=== PATIENT | female | born 1960 | race Caucasian/White ===

== ENCOUNTER 2019-10-20 05:56 | Observation (INO) ==
--- NOTE | 2019-10-06 09:14 | PAT Medication Instructions ---
Medication Instructions Date of Service October 06, 2019 Home Medications acetaminophen [Tylenol Arthritis Pain] 650 mg PO Q12H PRN cyclobenzaprine 10 mg PO HS duloxetine [Cymbalta] 60 mg PO QPM herbal drugs [Colon Herbal Cleanser] 1 cap PO Q OTHER DAY multivitamin with minerals [Hair,Skin and Nails] 1 tab PO QAM STOP taking 2 weeks before surgery (or as soon as possible if surgery is within 2 weeks) herbal drugs [Colon Herbal Cleanser] 1 cap PO Q OTHER DAY multivitamin with minerals [Hair,Skin and Nails] 1 tab PO QAM Take morning of surgery With a small sip of water, OTHERWISE NOTHING TO EAT OR DRINK AFTER MIDNIGHT: acetaminophen [Tylenol Arthritis Pain] 650 mg PO Q12H PRN (okay to take up to 4 hours prior to surgery if needed) Take evening before surgery acetaminophen [Tylenol Arthritis Pain] 650 mg PO Q12H PRN (if needed) cyclobenzaprine 10 mg PO HS duloxetine [Cymbalta] 60 mg PO QPM Other Notes If you have any questions please call us at [phone] or [phone] or [phone] or [phone]
--- NOTE | 2019-10-07 12:58 | Anesthesiology Consultation ---
Date of Service October 07, 2019 Assessment & Plan (1) Encounter for pre-operative examination: Per PAT assessment on 10/06: Travel screen negative. No known COVID-19 positive contacts. No current COVID-19 related symptoms. Surgeon arranging preop COVID testing. Awaiting results. Chart Review Chart Review: Acceptable Risk for Surgery and Patient seen in Pre Admission Testing Teaching & Discussion Pre-Anesthesia Teaching/Discussion Notes: Instructed NPO after midnight before surgery,except medications with 15 cc of water. Medication instructions provided according to the PAT guidelines. History Surgery Operation Date: 10/20/19 07:45 Proposed Procedures p C4-C7 Anterior Cervical Discectomy and Fusion - Azael Godinez DO Height/Weight Height: 5 ft 5 in Weight: 63 kg Allergies Allergy/AdvReac Type Severity Reaction Status Date / Time acetaminophen [From [place]] Allergy Unknown Verified 10/01/19 08:06 codeine Allergy Unknown Verified 10/01/19 08:06 hydrocodone [From [place]] Allergy Unknown Verified 10/01/19 08:06 Penicillins Allergy Unknown Verified 10/01/19 08:06 Medications Home Medications Medication Instructions Recorded Confirmed Last Taken acetaminophen [Tylenol Arthritis 650 mg PO Q12H PRN 10/01/19 10/01/19 Unknown Pain] cyclobenzaprine 10 mg PO HS 10/01/19 10/01/19 Unknown duloxetine [Cymbalta] 60 mg PO QPM 10/01/19 10/01/19 Unknown herbal drugs [Colon Herbal 1 cap PO Q OTHER DAY 10/01/19 10/01/19 Unknown Cleanser] multivitamin with minerals 1 tab PO QAM 10/01/19 10/01/19 Unknown [Hair,Skin and Nails] Past Medical History Medical History (Updated 10/07/19 @ 16:21 by Lynne Tobin) Anxiety Degenerative disc disease Depression Fibromyalgia GERD (gastroesophageal reflux disease) IBS (irritable bowel syndrome) Interstitial cystitis Mitral valve prolapse Patient states provider told her possible MVP after "listening to heart" 30+ years- no definitive diagnosis/no recent echo/no murmur on PAT exam Osteoarthritis Spondylosis TMJ click Exercise / Class Metabolic Activity II 4-5 Yardwork/Stairs/Walk up hill Past Family History Family History Father Diabetes Prostate cancer Mother Heart valve disease Other No family history of adverse response to anesthesia Past Surgical History Surgical History History of colonoscopy History of D&C x 2 History of esophagogastroduodenoscopy (EGD) History of laparoscopy History of partial hysterectomy History of removal of cyst History of tonsillectomy Past Anesthesia History No Hx of Anesthesia Complications and No Family Hx of Anesthesia Complications History of PONV No Hx of PONV and No Hx of Motion Sickness STOP BANG Total 2 Social History Smoking Status: Never smoker Do You Dip or Chew Tobacco: No Hx Alcohol Use: Yes Alcohol type: wine alcohol intake frequency: a few times a month Hx Substance Use: No substance use type: does not use Review of Systems Patient denies chest pain, shortness of breath, dyspnea on exertion, fever, chills, cough, wheezing, palpitations. Physical Exam Vital Signs VITALS BP 107/75 P 84 TEMP 98.1 SP02 100%Ra RESP 16 PHYSICAL Full neck and c-spine range of motion. Full TMJ range of motion. TMD __ finger breaths Mallampati Score ___ Dentition: missing molar Lungs: clear throughout to auscultation Cardiac: regular rate and rhythm, no murmurs noted Spine: normal Carotid arteries: negative bruit Extremities: no edema Testing Laboratory Results 10/07/19 13:12 10/07/19 13:12 PT 10.4 Seconds (9.0-12.0) 10/07/19 13:12 INR 1.0 (0.9-1.1) 10/07/19 13:12 APTT 24.5 Seconds (21.0-31.0) 10/07/19 13:12 Urine Color Yellow 10/07/19 13:12 Urine Appearance Clear (Clear) 10/07/19 13:12 Urine pH 5.0 (4.5-7.5) 10/07/19 13:12 Ur Specific [place] 1.011 (1.000-1.030) 10/07/19 13:12 Urine Protein Negative (Negative) 10/07/19 13:12 Urine Glucose (UA) Negative (Negative) 10/07/19 13:12 Urine Ketones Negative (Negative) 10/07/19 13:12 Urine Nitrite Negative (Negative) 10/07/19 13:12 Ur Leukocyte Esterase Negative (Negative) 10/07/19 13:12 Blood Type B Positive 10/07/19 13:12 Antibody Screen NEGATIVE 10/07/19 13:12 Electrocardiogram Date: 03/19/19 SR at 74bpm. Chest X-Ray Date: 10/07/19 Findings: + NAD
[2019-10-07 14:08] LABS: Basophils # (auto) 0.05 K/uL (0-0.2); Basophils % (auto) 0.8 %; Eosinophils % (auto) 3.2 %; Hematocrit (blood only) 42.1 % (37-47); Hemoglobin 13.3 g/dL (12.0-16.0); Lymphocytes # (auto) 2.78 K/uL (1.2-3.4); Lymphocytes % (auto) 44.3 %; Mean Corpuscular Hgb Conc 31.6 g/dL (32-36); Mean Corpuscular Volume 91.7 fL (80-100); Mean Platelet Volume 9.3 fL (7.4-10.4); Monocytes # (auto) 0.29 K/uL (0.11-0.59); Monocytes % (auto) 4.6 %; Neutrophils # (auto) 2.95 K/uL (1.4-6.5); Neutrophils % (auto) 47.1 %; Platelet Count 287 K/uL (130-400); RDW Coefficient of Variation 14.8 % (11.5-14.5); RDW Standard Deviation 50.2 fL (36.4-46.3); Red Blood Count 4.59 M/uL (4.2-5.4); White Blood Count 6.27 K/uL (4.8-10.8)
--- NOTE | 2019-10-07 14:12 | XRay Report ---
XR chest Pre-admission PA/Lat CLINICAL HISTORY: pat preoperative COMPARISON STUDY: No previous studies for comparison. FINDINGS: The bones soft tissues and hemidiaphragms are normal. The cardiomediastinal silhouette is n ormal. The lungs are clear. The pulmonary vasculature is normal. IMPRESSION: Negative chest. ACT 112: Negative or not required by law. The above report was generated using voice recognition software. It may contain grammatical, syntax or spelling errors. Electronically signed by: Jones Calderon M.D. 10/07/2019 2:11 PM
[2019-10-07 14:17] LABS: BUN Creatinine Ratio 21.8 (10-20); Calcium 9.2 mg/dl (8.5-10.1); Creatinine Clr Calc Pharmacy 70.7 ml/min; Est GFR (African American) 97.1; Est GFR (Non-African American) 83.8; Potassium 4.6 mmol/L (3.5-5.1)
[2019-10-07 14:19] LABS: Partial Thromboplastin Ratio 0.9; Partial Thromboplastin Time 24.5 Seconds (21.0-31.0); Prothrombin Time 10.4 Seconds (9.0-12.0)
[2019-10-07 15:18] LABS: Appearance Urine Clear (Clear); Bilirubin Urine Negative (Negative); Blood Urine Negative (Negative); Color Urine Yellow; Glucose Urine UA Negative (Negative); Ketones Urine Negative (Negative); Leukocyte Esterase Urine Negative (Negative); Nitrite Urine Negative (Negative); Protein Urine Negative (Negative); Specific Gravity Urine 1.011 (1.000-1.030); Urobilinogen Urine Negative (Negative)
[2019-10-20] MEDS ORDERED: GABAPENTIN 600 MG DOSE PO SCH (06:00)
[2019-10-20] MEDS ORDERED: CLINDAMYCIN 600 MG/54 ML BAG IV SCH (06:00)
[2019-10-20] MEDS ORDERED: LR 15ML/HR IV SCH (06:00)
[2019-10-20] MEDS ORDERED: PROPOFOL IV EMULSION 10 MG/ML 20 ML VIAL IV ONE (07:02)
[2019-10-20] MEDS ORDERED: GLYCOPYRROLATE 0.2 MG/ML VIAL ONE (07:02)
[2019-10-20] MEDS ORDERED: LIDOCAINE HCL 2% 2 ML VIAL/AMP(20MG/ML) INFIL ONE (07:02)
[2019-10-20] MEDS ORDERED: DEXAMETHASONE SOD INJ 4 MG/ML VIAL ONE (07:02)
[2019-10-20] MEDS ORDERED: MIDAZOLAM HCL 1 MG/ML 2ML VIAL ONE (07:02)
[2019-10-20] MEDS ORDERED: ONDANSETRON INJ 2 MG/ML 2 ML VIAL ONE (07:02)
[2019-10-20] MEDS ORDERED: NEOSTIGMINE METHYLSULFATE 1 MG/ML 10ML VIAL ONE (07:02)
[2019-10-20] MEDS ORDERED: fentaNYL citrate 100 MCG/2 ML VIAL ONE (07:02)
[2019-10-20] MEDS ORDERED: BACITRACIN INJ 50,000 UNIT VIAL ONE (07:04)
[2019-10-20] MEDS ORDERED: ONDANSETRON INJ 2 MG/ML 2 ML VIAL IV PRN ×2 (07:12→12:18)
[2019-10-20] MEDS ORDERED: fentaNYL citrate 100 MCG/2 ML VIAL IV PRN (07:12)
[2019-10-20] MEDS ORDERED: ePHEDrine sulfate 50 MG/ML AMP IV PRN (07:12)
[2019-10-20] MEDS ORDERED: ATROPINE SULFATE 0.1 MG/ML 10ML SYR IV PRN (07:12)
[2019-10-20] MEDS ORDERED: SUGAMMADEX SODIUM 200 MG/2 ML VIAL IV ONE (07:20)
--- NOTE | 2019-10-20 07:40 | History & Physical Bridge Note ---
Date of Service October 20, 2019 History & Physical Bridge Note I have examined the patient, reviewed the History & Physical and in the interval since the performance of the History & Physical I have noted the following changes of clinical significance: no changes noted
--- NOTE | 2019-10-20 07:41 | History & Physical Report ---
Date of Service October 20, 2019 Assessment & Plan (1) Cervical stenosis of spinal canal: C4-C7 anterior cervical discectomy and fusion Present on Admission?: Yes History of Present Illness Chief Complaint: Neck and arm pain Primary Care Provider: Juan Blood DO This is a 59-year-old female who presents with chronic persistent neck and arm pain. After failing course of nonoperative care is here for surgical invention. Allergies Allergy/AdvReac Type Severity Reaction Status Date / Time acetaminophen [From [place]] Allergy Unknown Verified 10/20/19 06:33 codeine Allergy Unknown Verified 10/20/19 06:33 hydrocodone [From [place]] Allergy Unknown Verified 10/20/19 06:33 Penicillins Allergy Unknown Verified 10/20/19 06:33 Home Medications Home Medications Medication Instructions Recorded Confirmed Type acetaminophen [Tylenol Arthritis 650 mg PO Q12H PRN 10/01/19 10/20/19 History Pain] cyclobenzaprine 10 mg PO HS 10/01/19 10/20/19 History duloxetine [Cymbalta] 60 mg PO QPM 10/01/19 10/20/19 History herbal drugs [Colon Herbal 1 cap PO Q OTHER DAY 10/01/19 10/20/19 History Cleanser] multivitamin with minerals 1 tab PO QAM 10/01/19 10/20/19 History [Hair,Skin and Nails] Past Med/Surg History Family History Father Diabetes Prostate cancer Mother Heart valve disease Other No family history of adverse response to anesthesia Social History Smoking Status: Never smoker Second Hand Exposure: No; Do You Dip or Chew Tobacco: No; Hx Alcohol Use: Yes Alcohol type: wine Hx Substance Use: No Preferred Language: Bel[place]ian Communication Ability: Effective [employer] Required: No Beliefs That Will Affect Care: None Current Living Situation: Spouse Feels Safe at Home: Yes Safety Concerns: Feels Safe At This Time Physical Exam Physical Exam: Patient is alert and oriented neurologically intact. Heart regular rate and rhythm. Lungs clear to auscultation. Results & Data Vital Signs (Past 12 Hours) Vital Signs Temp Pulse Resp BP Pulse Ox 10/20/19 06:39 36.6 C 84 20 118/74 100
[2019-10-20] MEDS ORDERED: HYDROmorphone INJ 2 MG/ML SYR/VIAL ONE (08:13)
--- NOTE | 2019-10-20 09:43 | Operative Report ---
Post Operative Report Pre & Post Diagnosis Operation Date: 10/20/19 07:45 Pre-Op Diagnosis: Cervical spinal stenosis with radiculopathy Post-Op Diagnosis: Same I identified the patient and participated in the time-out.: Yes Procedure Operation Date: 10/20/19 07:45 Actual Procedures #1 anterior cervical discectomy and fusion C4-5, C5-6 and C6-7. #2 anterior cervical arthrodesis C4-5, C5-6 and C6-7. #3 placement of Spira cage filled with DBM 6 mm in height at C4-5, 5 mm in height at C5-6 and 7 mm at C6-7. #4 application of 5 complete screws from C4-C7. Surgeon Azael Godinez, Biology Intern Rebekah Dunham Estimated Blood Loss 10 Findings Consistent with Post-Op Diagnosis Specimens None Indications This is a 51-year-old female presents above-mentioned diagnosis after failing extensive course of nonoperative care is here for the above-mentioned procedure. Description of Procedure Patient was met with identified informed consent obtained. Patient was then taken to the operative suite underwent intubation placed in supine position David table head Rivera head golf coach. Operative prominences well-padded eyes inspected to ensure no external pressure placed upon. This point anterior cervical spine was prepped and draped in a sterile fashion. With the assistance of fluoroscopy identified the C5 vertebral body and a transverse incision was placed along the right anterior aspect of the cervical spine overlying this region. Sharp dissection with assistance of bipolar electrocautery was performed down to and exposing anterior cervical spine from C4-C7. Self- retaining retractors placed. I verified my position with fluoroscopy. Then performed a complete discectomy of C4-5 out to the uncovertebral joints bilaterally. [place] distracting pins utilized. I removed all posterior annular fibers and longitudinal ligament and perform bilateral foraminotomies. En dplates were then burred to subcortical bleeding bone and a 6 mm Spira cage filled with DBM tapped in position. Then proceeded to see 5 C6. Again complete discectomy performed out to the uncovertebral joints bilaterally. [place] distracting pins again utilized. Removed all posterior annular fibers longitudinal ligament bilateral foraminotomies performed. A 5 mm Spira cage was then tapped in position. Lastly presented to C6-7. Again complete discectomy performed [place] distracting pins were lysed. Removed all posterior annular fibers longitudinal ligament bilateral foraminotomies performed and a 7 mm Spira cage filled with DBM tapped in position. Distracting apparatus was removed all anterior osteophytes burred to a smooth cortical surface and a bower plate and screws applied with the assistance of fluoroscopy. Incision was then copiously irrigated and inspected to ensure no damage to surrounding structures remaining bleeding. 10 round HO drain inserted. Incision was then closed with 2 Vicryl in the fascia and 4 Monocryl for final skin closure. Steri-Strip sterile dressings placed. Patient waken taken PACU stable disc. Please note spinal cord monitoring was utilized that the procedure no changes noted. Lastly Rebekah Dunham was present throughout the entire procedure involved the patient positioning complex portions of the surgery and final skin closure. I attest to the content of the Intraoperative Record and any orders documented therein. Any exceptions are noted below.
--- NOTE | 2019-10-20 10:05 | Fluoroscopy Report ---
FL cervical 2-3V CLINICAL HISTORY: ACDF C4-7 COMPARISON STUDY: FLUOROSCOPY TIME: 8 seconds NUMBER OF FLUOROSCOPIC IMAGES: 2 FINDINGS: Image intensifier support for an anterior cervical fusion from C4 through C7 IMPRESSION: Image intensifier support for an anterior cervical fusion from C4 through C7. ACT 112: Negative or not required by law. The above report was generated using voice recognition software. It may contain grammatical, syntax or spelling errors. Electronically signed by: Jones Calderon M.D. 10/20/2019 10:04 AM
[2019-10-20] MEDS ORDERED: ALBUTEROL 0.083% NEBU SOLN 3 ML VIAL ONE (10:14)
[2019-10-20] MEDS ORDERED: NALOXONE HCL 0.4 MG/1 ML VIAL/CARP ONE (10:33)
[2019-10-20] MEDS ORDERED: SOD PHOSPHATE/SOD BIPHOSPHATE ENEMA 132 ML BTL PR PRN (12:18)
[2019-10-20] MEDS ORDERED: RACEPINEPHRINE 2.25% NEBU SOLN 0.5 ML VIAL INH PRN (12:18)
[2019-10-20] MEDS ORDERED: NALOXONE HCL 0.4 MG/1 ML VIAL/CARP IV PRN (12:18)
[2019-10-20] MEDS ORDERED: ALUMINUM/MAGNESIUM SUSP 30 ML UDC PO PRN (12:18)
[2019-10-20] MEDS ORDERED: ACETAMINOPHEN 500 MG TAB PO PRN (12:18)
[2019-10-20] MEDS ORDERED: METOCLOPRAMIDE HCL INJ 5 MG/ML 2 ML VIAL IV PRN (12:18)
[2019-10-20] MEDS ORDERED: MAGNESIUM HYDROXIDE SUSP 30 ML UDC PO PRN (12:18)
[2019-10-20] MEDS ORDERED: LORazepam 0.5 MG TAB PO PRN (12:18)
[2019-10-20] MEDS ORDERED: DO NOT ADMINISTER FLU VACCINE PRN (12:18)
[2019-10-20] MEDS ORDERED: DO NOT ADMINISTER PNEUMOCOCCAL VACCINE PRN (12:18)
[2019-10-20] MEDS ORDERED: LORazepam 0.5 MG/1 ML VIAL IV PRN (12:18)
[2019-10-20] MEDS ORDERED: FAMOTIDINE 20 MG TAB PO PRN (12:18)
[2019-10-20] MEDS ORDERED: OXYCODONE HCL IR 5 MG TAB (IMMEDIATE RELEASE) PO PRN (12:18)
[2019-10-20] MEDS ORDERED: DEXAMETHASONE SOD PHOSPHATE 8 MG in SYRINGE 0 ML IV PRN (12:18)
[2019-10-20] MEDS ORDERED: ONDANSETRON 4 MG OD TAB PO PRN (12:18)
[2019-10-20] MEDS ORDERED: PROMETHAZINE HCL 12.5 MG in SODIUM CHLORIDE 0.9% 50 ML IV PRN (12:18)
[2019-10-20] MEDS ORDERED: ACETAMINOPHEN 1,000 MG/100 ML VIAL IV PRN (12:18)
[2019-10-20] MEDS ORDERED: HYDROmorphone INJ 1 MG/ML SYRINGE IV PRN (12:18)
[2019-10-20] MEDS: LACTATED RINGER'S 1,000 ML IV SCH ×2 (12:37→23:42)
[2019-10-20] MEDS: HYDROmorphone INJ 0.5 MG/0.5 ML SYR IV PRN ×3 (12:41→19:58)
--- NOTE | 2019-10-20 14:00 | Anesthesiology Progress Note ---
Date of Service October 20, 2019 Anesthesia Post Procedure Vital Signs Vital Signs: Temp Pulse Pulse Resp BP BP Pulse Ox 10/20/19 13:15 37.1 C 102 H 12 110/70 94 10/20/19 12:45 36.9 C 105 H 12 109/70 95 10/20/19 12:32 107 H 16 95 10/20/19 12:24 10/20/19 12:15 36.5 C 110 H 14 139/80 95 10/20/19 11:45 114 H 16 133/72 95 10/20/19 11:35 110 H 16 132/85 95 10/20/19 11:25 107 H 14 136/75 98 10/20/19 11:15 36.3 C L 106 H 14 147/73 H 97 10/20/19 11:05 102 H 12 131/80 98 10/20/19 10:55 104 H 14 135/76 98 10/20/19 10:45 108 H 12 143/76 H 97 10/20/19 10:35 103 H 12 123/65 97 10/20/19 10:25 92 H 14 126/59 L 97 10/20/19 10:15 86 10 L 110/57 L 84 L 10/20/19 10:06 36.3 C L 73 15 121/65 100 10/20/19 06:39 36.6 C 84 20 118/74 100 Pulse Ox 10/20/19 13:15 10/20/19 12:45 10/20/19 12:32 10/20/19 12:24 97 10/20/19 12:15 10/20/19 11:45 10/20/19 11:35 10/20/19 11:25 10/20/19 11:15 10/20/19 11:05 10/20/19 10:55 10/20/19 10:45 10/20/19 10:35 10/20/19 10:25 10/20/19 10:15 10/20/19 10:06 10/20/19 06:39 Pain Intensity Bilateral Other: Pain Intensity: 0 Anterior Neck: Pain Intensity: 6 Transfer of Care Handoff Completed per policy Notes Mental Status: alert / awake / arousable and participated in evaluation Patient Amnestic to Procedure: Yes Nausea / Vomiting: adequately controlled Pain: adequately controlled Airway Patency, RR, SpO2: stable & adequate BP & HR: stable & adequate Hydration State: stable & adequate Anesthetic Complications: see Notes below and Pt Satisfied with anesthetic care Notes: Called urgently by PACU nursing staff as patient was desaturating. Upon arrival, PACU nurses were providing bag mask ventilation with supplemental oxygen. Patient was hypoxic and noted high pitched b/l respirations. SpO2 was slowly increasing with bag mask ventilation but decided to administer aluberol via face mask. Respiratory therapy had been called and they provided a duoneb via the bag mask/ambu. Breath sounds much improved and SpO2 in the 90's. Patient still minimally responsive and with eventual shallow and slow respirations. Patient had received sugammadex in the OR for reversal so residual paralytic low on the differential. I felt at this time that her bronchospasm had been adequately treated and therefore I decided to give 40mcg IV narcan x1 dose for slight reveral of her opioids given in the operating room. Within one to two minutes, patient was more alert with better respiratory rate (over 10) and nice chest rise and fall, indicating more adequate tidal volumes. She was following commands and moving extremities x4. Rest of patient's recovery in the PACU was uneventful and she eventually met PACU discharge criteria and was taken to the floor in stable condition.
[2019-10-20] MEDS: CLINDAMYCIN 600 MG in DEXTROSE 5% 50 ML IV SCH ×2 (16:37→23:43)
[2019-10-20] MEDS ORDERED: DULOXETINE HCL 60 MG CAP PO SCH (21:00)
[2019-10-20] MEDS ORDERED: DOCUSATE SODIUM/SENNA 50/8.6MG TAB PO SCH (21:00)
[2019-10-21 05:04] LABS: Basophils # (auto) 0.01 K/uL (0-0.2); Basophils % (auto) 0.1 %; Hematocrit (blood only) 35.6 % (37-47); Hemoglobin 11.5 g/dL (12.0-16.0); Immature Granulocytes # (auto) 0.02 K/uL (0.00-0.02); Immature Granulocytes % (auto) 0.2 %; Lymphocytes # (auto) 0.96 K/uL (1.2-3.4); Mean Corpuscular Hemoglobin 29.9 pg (25-34); Mean Corpuscular Hgb Conc 32.3 g/dL (32-36); Mean Corpuscular Volume 92.5 fL (80-100); Monocytes # (auto) 0.85 K/uL (0.11-0.59); Monocytes % (auto) 7.1 %; Neutrophils # (auto) 10.12 K/uL (1.4-6.5); Neutrophils % (auto) 84.6 %; Platelet Count 228 K/uL (130-400); RDW Coefficient of Variation 15.1 % (11.5-14.5); RDW Standard Deviation 51.4 fL (36.4-46.3); Red Blood Count 3.85 M/uL (4.2-5.4); White Blood Count 11.96 K/uL (4.8-10.8)
[2019-10-21 05:34] LABS: BUN Creatinine Ratio 15.6 (10-20); Calcium 7.8 mg/dl (8.5-10.1); Creatinine Clr Calc Pharmacy 83.6 ml/min; Est GFR (African American) 112.9; Est GFR (Non-African American) 97.4; Potassium 4.4 mmol/L (3.5-5.1)
[2019-10-21] MEDS: TRAMADOL HCL 50 MG TABLET PO PRN ×2 (05:44→12:21)
--- NOTE | 2019-10-21 08:20 | Discharge Summary ---
Date of Service October 21, 2019 Admission HPI Per Admitting Provider This is a 59-year-old female who presents with chronic persistent neck and arm pain. After failing course of nonoperative care is here for surgical invention. Principal Diagnosis Cervical radiculopathy Discharge Data Allergies Allergy/AdvReac Type Severity Reaction Status Date / Time acetaminophen [From [place]] Allergy Unknown Verified 10/20/19 06:33 codeine Allergy Unknown Verified 10/20/19 06:33 hydrocodone [From [place]] Allergy Unknown Verified 10/20/19 06:33 Penicillins Allergy Unknown Verified 10/20/19 06:33 Procedures Performed Operation Date: 10/20/19 07:45 Actual Procedures p C4-C7 Anterior Cervical Discectomy and Fusion, Spinal Cord Monitoring(Not Applicable) - Azael Godinez DO Ordered Studies 10/20/19 07:45 FL cervical 2-3V Routine FL fluoroscopy <1hr Routine Hospital Course (1) Cervical stenosis of spinal canal: Patient underwent anterior cervical discectomy fusion tolerated so was taken to orthopedic for postoperative. Postop day 1 she is swallowing well arm symptoms are improved ambulating halls. Patient demonstrates excellent strength testing. Subsequently discharged home. Discharge orders instructions from the chart for further review. Total Time Total Time Spent Total Time Spent (In Minutes): 20 minutes Discharge Plan Discharge Items Patient Disposition: Home - Self-Care Reason For Visit: Spinal Stenosis, Cervical Region Discharge Diagnosis: Cervical spinal stenosis with radiculopathy Activity: As commented below Non-emergency contact: Primary Care Provider Call non-emergency contact if: you have any medication questions Follow-up/Referrals: Juan Blood DO [Primary Care Provider] - Diet: Regular Addtl Attending Provider Instructions: ACTIVITY RECOMMENDATIONS: SELF CARE INSTRUCTIONS AFTER CERVICAL FUSIONS 1. No smoking. Smoking drastically decreases the chance of a solid fusion. 2. No bending, lifting more than 5 pounds, or twisting (roll like a log when turning in bed). 3. You may shower 3 days after surgery. Thoroughly dry wound. Do not soak in the tub. 4. Cervical collar: Must be worn at all times including sleeping. You may remove the brace only to bath, eat and if you are sitting in a recliner. 5. Please walk as much as you can for exercise. Gradually increase the distance that you walk as your endurance increases. SPECIAL CARE INSTRUCTIONS: VERY IMPORTANT TO READ AND REVIEW A. Do not take any anti-inflammatory medications (i.e. Indocin, Advil, Aspirin, Naprosyn, Aleve, Motrin, etc.) as these may inhibit the chance of a solid fusion. Tylenol is okay to take. B. Your surgical incision has been closed with a cosmetic suture under the skin that will dissolve in about 6 weeks. In 14 days, you can use a pair of clean scissors and cut the suture that is left outside of the skin at the ends of your incision. C. Complications are uncommon, but please contact us if you have any signs or symptoms of: 1. wound infection (fever higher than 102.5 degrees F, redness, separation of wound, drainage, or increasing pain from the incision) 2. blood clots in legs (pain, swelling, redness and warmth in legs) 3. urinary tract infection (fever higher than 102.5 degrees, burning upon urination or increased frequency of urination) 4. nerve problems (inability to walk on your toes or heels, numbness, loss of bowel or bladder control) 5. any other symptoms that concern you. D. Please call the office at if you have any concerns or questions about your operation or recovery. MANAGING PAIN AFTER SPINAL SURGERY 1. Narcotic medication is intended for short-term use and will be provided for surgical pain. Surgical pain usually lasts for a period of 4-6 weeks. Narcotic medication includes Percocet, Vicodin, Darvocet, Tylenol #3 or Lortab. 2. Longer-term pain is more appropriately treated with non-narcotic medication such as Tylenol ES. 3. Muscle spasm is not appropriately treated with narcotics. Muscle relaxers such as Soma, Flexeril or Skelaxin can be used along with Tylenol ES. 4. Remember that we all live with some "aches and pains". This is not unusual or uncommon after an injury or as we get older. 5. We will provide appropriate medication within the normal guidelines of their prescribed use. We will also be very cautious and aware of potential abuse and extended duration of patients' medication needs. 6. Please allow 2-3 days to process refills. Prescriptions will not be mailed but must be picked up at the office. FOLLOW UP VISIT: Keep your scheduled follow-up appointment. Any questions, please call the office at . Pending Studies at Discharge: No Stand-Alone Forms: My [facility], Smoking Cessation Medications and DC Order Prescriptions: New tramadol 50 mg tablet 50 mg PO Q6H PRN (Reason: pain, moderate) Qty: 30 RF: 0 Continued cyclobenzaprine 10 mg Tablet 10 mg PO HS RF: 0 acetaminophen [Tylenol Arthritis Pain] 650 mg Tablet Extended Release 650 mg PO Q12H PRN (Reason: Pain) RF: 0 multivitamin with minerals [Hair,Skin and Nails] Tablet 1 tab PO QAM RF: 0 Colon Herbal Cleanser Capsule 1 cap PO Q OTHER DAY RF: 0 duloxetine [Cymbalta] 60 mg Capsule,Delayed Release(Dr/Ec) 60 mg PO QPM RF: 0 Discharge Orders: Discharge Order (Routine); Ordered 10/21/19 Ordered By: Azael Godinez Admission Data Admit Date/Time: 10/20/19 10:08 Attending Provider: Azael Godinez Admit Provider: Azael Godinez Primary Care Provider: Juan Blood
[2019-10-21] MEDS ORDERED: DEXAMETHASONE SOD PHOSPHATE 6 MG in SYRINGE 0 ML IV SCH (09:00)
[2019-10-21] MEDS ORDERED: POLYETHYLENE (MIRALAX) 17 GM PACK PO SCH (09:43)
[2019-10-22] MEDS ORDERED: bisacodyL 10 MG SUPP PR PRN (09:43)
== END 2019-10-21 12:20 | disposition home or self-care (01) ==
LOC: 3E 05:56 → ASU 05:56